=== PATIENT | female | born 1975 | race African-American/Black ===

== ENCOUNTER 2020-03-16 17:12 | Emergency (ER) | payer MEDICAID ==
[~2020-03-16] VITALS: Ht 167.6 cm; Wt 72.0 kg
[2020-03-16] MEDS ORDERED: ACETAMINOPHEN WITH CODEINE 300/30MG TABLET PO ONE (20:30)
[2020-03-16] MEDS ORDERED: ONDANSETRON 4MG ODT PO ONE (20:45)
[2020-03-16 22:33] VITALS: BP 129/80
== END 2020-03-16 22:34 | disposition home or self-care (01) ==
LOC: ER 17:12
DX: M54.2 Cervicalgia (principal); R07.89 Other chest pain; M54.5 Low back pain; V49.88XA Car occupant (driver) (passenger) injured in other specified transport accidents, initial encounter; Y93.89 Activity, other specified; Y92.89 Other specified places as the place of occurrence of the external cause; Y99.8 Other external cause status
CPT/HCPCS: 71045; 72040; 72100; 81025; 99284; Q0162